=== PATIENT | female | born 1985 | race Two or more races ===

== ENCOUNTER 2016-12-09 22:14 | Emergency (ER) | payer SELFPAY ==
--- NOTE | 2016-12-09 23:18 | EDPHY ---
H & P Stated Complaint: c/o sorethroat x 1 week, pierce x 3 days, n/v/d today Source: Patient Exam Limitations: Language barrier - Medical/Surgical History Hx Asthma: No Hx Chronic Respiratory Disease: No Hx Diabetes: No Hx Cardiac Disease: No Hx Renal Disease: No Hx Cirrhosis: No Hx Alcoholism: No Hx HIV/AIDS: No Hx Splenectomy or Spleen Trauma: No Other PMH: c section x 2 - Social History Smoking Status: Never smoked Time Seen by Provider: 12/09/16 22:38 HPI/ROS: CHIEF COMPLAINT: sore throat, body aches, ear pain HISTORY OF PRESENT ILLNESS: 31-year-old female presents emergency department complaining of sore throat x1 week. She reports body aches, chills, ear pain. She denies cough. Patient reports multiple sick contacts at home with her children. Patient states she took fell some today and right afterwards threw up multiple times and had 4 episodes of diarrhea. Patient denies abdominal pain , she denies blood in her stool or emesis. She denies urinary frequency, urgency or dysuria. Patient took ibuprofen this morning at 6:00 a.m. REVIEW OF SYSTEMS: A comprehensive 10 point review of systems is otherwise negative aside from elements mentioned in the history of present illness. (Aida Eastman) - Physical Exam Exam: General: Alert, nontoxic. ENT: Tympanic membranes clear, external auditory canal, external ear and surrounding soft tissue including over the mastoid unremarkable. Nasopharynx is not injected, there is no rhinorrhea. Oropharynx with erythema. There is no exudate. Bilateral tonsillar hypertrophy. No asymmetry. The uvula is midline. No elevation of tongue. There is no hoarseness. No drooling, patient has good control of their oral secretions. No trismus. No stridor. Cardiac: Tachycardic rate and rhythm. Respiratory: Lungs clear to auscultation bilaterally. Abdomen: Obese, soft, nontender Back: No CVA tenderness Neurological: no meningismus. Skin: No rashes. (Aida Eastman) Constitutional: Initial Vital Signs Temperature (C) 36.8 C 12/09/16 22:22 Heart Rate 118 H 12/09/16 22:22 Respiratory Rate 18 12/09/16 22:22 Blood Pressure 146/105 H 12/09/16 22:22 O2 Sat (%) 95 12/09/16 22:22 O2 Delivery Mode Room Air Allergies/Adverse Reactions: hydrocodone Allergy (Verified 12/09/16 22:29) Home Medications: Medication Instructions Recorded Ondansetron Odt [Zofran Odt] 4 mg PO Q6-8PRN PRN #8 tab 12/10/16 Medical Decision Making ED Course/Re-evaluation: 31-year-old female presents with viral syndrome symptoms. Rapid strep and influenza negative. Pt vomited after she was given Tylenol IV established, patient given 2 L of normal saline and 4 mg of Zofran. She is given 650 mg of Tylenol p.o. Patient is nontoxic appearing she has a benign abdominal exam. She will be discharged home with a prescription for Zofran. I have recommended alternating Tylenol with ibuprofen, rest, hydration. She is to follow up at [facility] tomorrow for symptoms that are not improving and return to the emergency department for worsening symptoms, new symptoms or concerns. (Aida Eastman) Differential Diagnosis: The differential diagnosis for the patient's nausea and vomiting included but was not limited to gastroenteritis, gastritis, appendicitis, and medication side effect. (Aida Eastman) Other Provider: PHYSICIAN DOCUMENTATION: The patient was evaluated and managed by the Physician Diagnostic Assistant. My co- signature indicates that I have reviewed this chart and I agree with the findings and plan of care as documented. I am the secondary supervising physician. (Ivania Roberts) - Data Points Laboratory Results: 12/09/16 12/09/16 12/09/16 Unknown 23:15 22:30 Influenza Typ A,B (DFA) NEGATIVE FOR FLU (NEGATIVE) Group A Strep Screen NEGATIVE (NEGATIVE) Group A Strep DNA Pending Medications Given: Discontinued Medications Acetaminophen (Tylenol) 650 mg PO EDNOW ONE Stop: 12/09/16 23:20 Last Admin: 12/09/16 23:33 Dose: 650 mg Sodium Chloride (Ns) 2,000 mls @ 0 mls/hr IV ONCE ONE PRN Reason: Wide Open Stop: 12/10/16 00:13 Last Admin: 12/10/16 00:37 Dose: 2,000 mls Ondansetron HCl (Zofran) 4 mg IVP EDNOW ONE Stop: 12/10/16 00:13 Last Admin: 12/10/16 00:36 Dose: 4 mg Ondansetron HCl (Zofran Odt 4 Mg Prepack#2) 1 btl ALFREDO CLINE Stop: 12/10/16 00:57 Last Admin: 12/10/16 01:09 Dose: 1 btl Departure - Departure Disposition: Home, Routine, Self-Care Clinical Impression: Viral syndrome Condition: Good Instructions: Ondansetron (By mouth), Acute Nausea and Vomiting (ED), Viral Syndrome (ED) Additional Instructions: Take over the counter Tylenol and ibuprofen as instructed. Rest, drink plenty of fluids. Take 4 mg of Zofran every 8 hours as needed for nausea. Use a saline nasal rinse, humidifier at night, hot steam showers. Return to the ED for difficulty breathing, chest pain, other concerns. [facility] for symptoms that are not improving. Referrals: [facility] [Outside] - As per Instructions Prescriptions: Ondansetron Odt [Zofran Odt] 4 mg PO Q6-8PRN PRN #8 tab PRN Reason: Nausea/Vomiting, Can'T Take Po Print Language: Cambodian
[2016-12-09] MEDS ORDERED: ACETAMINOPHEN 325 MG TAB PO ONE (23:19)
[2016-12-10] MEDS ORDERED: NS 2,000 ML IV ONE (00:12)
[2016-12-10] MEDS ORDERED: ONDANSETRON 4 MG/2 ML VIAL IVP ONE (00:12)
[2016-12-10] MEDS ORDERED: ONDANSETRON 4MG PREPACK#2 BTL TAKEHOME ONE (00:56)
[2016-12-10 01:06] VITALS: RESP 16
[2016-12-10 01:29] VITALS: BP 154/98; PULSE 95; TEMP 98.6; O2SAT 95
== END 2016-12-10 01:31 | disposition home or self-care (01) ==
DX: B34.9 Viral infection, unspecified (principal)
CPT/HCPCS: 96374; J2405

== ENCOUNTER 2017-09-14 14:09 | Emergency (ER) | payer SELFPAY ==
--- NOTE | 2017-09-14 14:58 | EDPHY ---
H & P Stated Complaint: R ear pain Time Seen by Provider: 09/14/17 14:57 - Personal History LMP (Females 10-55): 8-14 Days Ago Current Tetanus/Diphtheria Vaccine: Yes Current Tetanus Diphtheria and Acellular Pertussis (TDAP): Yes - Medical/Surgical History Hx Asthma: No Hx Chronic Respiratory Disease: No Hx Diabetes: No Hx Cardiac Disease: No Hx Renal Disease: No Hx Cirrhosis: No Hx Alcoholism: No Hx HIV/AIDS: No Hx Splenectomy or Spleen Trauma: No Other PMH: c section x 2, atypical cells on uterus - Social History Smoking Status: Never smoked Constitutional: Initial Vital Signs Temperature (C) 36.9 C 09/14/17 14:16 Heart Rate 112 H 09/14/17 14:16 Respiratory Rate 16 09/14/17 14:16 Blood Pressure 160/102 H 09/14/17 14:16 O2 Sat (%) 97 09/14/17 14:16 O2 Delivery Mode Room Air Allergies/Adverse Reactions: hydrocodone Allergy (Verified 09/14/17 14:15) Home Medications: Medication Instructions Recorded Neomy Sulf/Polymyx B Sulf/Hc 4 drops OT TID #1 solution 09/14/17 [Cortisporin Otic (*)] Medical Decision Making ED Course/Re-evaluation: CHIEF COMPLAINT: Right sided otalgia / neck pain HISTORY OF PRESENT ILLNESS: This patient is a Estonian-speaking 32 year old female complaining of right- sided otalgia onset yesterday. She has had two infections in the last six months and has been on two courses of antibiotics. Her symptoms initially resolved following the antibiotics, but return similarly. Her pain is always right-sided. She denies fever or recent cold or cough symptoms. She denies any recent trauma. HPI obtained primarily through sales branch manager at bedside. REVIEW OF SYSTEMS: A 10 point review of systems was performed and is negative with the exception of the elements mentioned in the history of present illness. PHYSICAL EXAM: HR, BP, O2 Sat, RR. Temp noted General Appearance: Alert, well hydrated, appropriate, and non-toxic appearing. Head: Atraumatic without scalp tenderness or obvious injury Eyes: Pupils equal, round, reactive to light and accommodation, EOMI, no trauma , no injection. Ears: Scarred-appearing tympanic membrane on right. Clear on left, no perforation, normal landmarks Nose: Atraumatic, no rhinorrhea, clear. Throat: Mucus membranes moist. Neck: Posterior auricular lymph node swelling on right. Supple, nontender. Respiratory: No retractions, no distress, no wheezes, and no accessory muscle use. Lungs are clear to auscultation bilaterally. Cardiovascular: Regular rate and rhythm. Good capillary refill all extremities. Musculoskeletal: Normal active ROM of all extremities, atraumatic. Neurological: Alert, appropriate, and interactive. Nonfocal neuro exam. Skin: No rashes, good turgor, no nodules on palpation. Past medical history: Atypical uterine cells. Past surgical history: Cesarian section x 2 Family history: Noncontributory Social history: Lives in [place]. Self-employed. Friend at bedside. DIFFERENTIAL DIAGNOSIS: Includes but not limited to otitis externa, otitis media, eustachian tube dysfunction, temporomandibular joint dysfunction. MEDICAL DECISION MAKING: This 32 year old female presents with recurrent right-sided otalgia, most recently beginning yesterday. Exam reveals extensive scarring to the right tympanic membrane. No erythema or discharge. The ear and ear canal are nontender. Plan to discharge home in good condition with prescription for Cortisporin otic drops for symptom relief. She understands it is important to follow up with otolaryngology this week due to the recurrent nature of her symptoms. She will take ibuprofen for pain/inflammation relief. The patient is comfortable with this plan. Departure - Departure Disposition: Home, Routine, Self-Care Clinical Impression: Otalgia of right ear Condition: Good Instructions: Earache (ED) Additional Instructions: 1. Follow up with an Ear, Nose, and Throat specialist this week without fail for further evaluation of your recurrent ear pain and infections. 2. Take Ibuprofen 600mg every 6-8 hours as needed for pain and inflammation relief. 3. Use Cortisporin otic drops as prescribed. As we discussed, this medication is both an antibiotic and a steroid, which will also help relieve inflammation. 4. Return to the emergency department for increased pain, swelling, or redness in your ear or if you experience sudden hearing loss, severe headache, fever, or other worsening of condition. 1- Ori darren lillian de seguimiento con el especialista de Oido, Nariz y Malissata esta semana sin falta para evaluar gibbons condicion actual del oido. 2- [place] Ibuprofen 600 mg cada 6-8 horas a caro lo necesite para dolor e inflamacion. 3. Use las gotas Cortisporin otic recetadas. Olanta lo comentamos rakesh es antibiorico y esteroide, que ayudara con la inflamacion. 4. Regrese a la asia de emergencia si incrementa el dolor, inchazon, o rojizo en gibbons oido o si siente perdida auditiva, dolor ankur de elliot, fiebre, o si empeora. Referrals: [facility] [Other] - As per Instructions Camille Green MD [Medical Doctor] - As per Instructions Prescriptions: Neomy Sulf/Polymyx B Sulf/Hc [Cortisporin Otic (*)] 4 drops OT TID #1 solution Print Language: Estonian Report Scribed for: Hammad Carrington Report Scribed by: Daksha Wyatt Date of Report: 09/14/17 Time of Report: 14:59
[2017-09-14 15:39] VITALS: BP 158/92; PULSE 102; RESP 18; TEMP 98.2; O2SAT 96
== END 2017-09-14 15:56 | disposition home or self-care (01) ==
DX: H92.01 Otalgia, right ear (principal)

== ENCOUNTER 2018-08-10 10:28 | Emergency (ER) | payer SELFPAY ==
--- NOTE | 2018-08-10 11:02 | EDPHY ---
H & P Time Seen by Provider: 08/10/18 10:47 HPI/ROS: Clinical Impression: Strep tonsillitis Assessment/Plan: 33-year-old Peruvian-speaking only female presents to the emergency department with 24 hr of sore throat and dysphagia. Vital signs stable, afebrile, tolerating secretions well, no audible stridor or wheezing. On exam patient has 4+ kissing tonsils, exudates, and a positive strep test. Treatment options discussed. She has elected for IM Bicillin. I also gave Decadron in the ED and a 3 day course of Decadron at home. Encouraged PCP follow-up in 24-48 hours. [id number] medications discussed, hydration emphasized, warning signs to return to ED as outlined and discharge in a person with the use of a etl data architect. Differential Dx: Viral tonsillitis, strep tonsillitis, peritonsillar abscess, retropharyngeal abscess, epiglottitis, uvulitis, dehydration ED Procedures: Positive strep test ED Course: Patient reassessed after positive strep test. etl data architect utilized. Patient elected for IM antibiotics Chief Complaint: Sore throat HPI: This is a 33-year-old otherwise healthy Peruvian-speaking only female presenting to the ER today with 24 hr of sore throat. Patient reports she was ill last week but symptoms completely resolved. Since last night she has had increased pain with swallowing but is able to tolerate secretions, water and over-the- counter medications. No ill contacts at home. She reports subjective fevers. She reports she is coughing up"yellow phlegm". No reported history of asthma or pulmonary disease. She has not seen a primary care provider for this. She reports she is otherwise healthy and does not take regular prescription medications at home. States she is nauseous, no vomiting. etl data architect on used for interpretive services PMH: None Pertinent Past Surgical History: Noncontributory Family History: Noncontributory Social History: Nonsmoker, last menstrual cycle 2 weeks ago ROS: All other systems negative Constitutional: no chills, appetite change. Eyes: No discharge, vision change ENT: no congestion, + ear pain. Cardiovascular: No chest pain, no palpitations. Respiratory: +cough, no shortness of breath. Gastrointestinal: No abdominal pain, no vomiting, positive nausea, diarrhea. Musculoskeletal: No back pain, joint swelling, joint pain, myalgias. Skin: No rashes, color change. Physical Exam: General Appearance: Alert, oriented, appropriate, cooperative, NAD, well hydrated, non-toxic appearing, VSS, no hypoxia. HEENT: TMs are clear bilaterally no perforation or FB, no injection, no evidence of serous or mucopurulent otitis. Symmetric tonsillar hypertrophy with exudates noted. Tonsils 4+ and kissing. No peritonsillar abscess, retropharyngeal abscess or evidence of epiglottitis. Patient tolerating secretions no uvulitis. Dentition without abnormality. Eyes: PERRLA, no acute vision change, nystagmus, swelling, discharge, pain or photosensitivity. Conjunctiva pink, no pallor or injection Neck: Supple, nontender, no lymphadenopathy, no midline pain, FROM, no meningismus. Respiratory: There are no retractions, lungs are clear to auscultation. Cardiac: Regular rate and rhythm, no murmurs or gallops. Gastrointestinal: Abdomen is soft, nontender, bowel sounds normal, no masses/ hernia, no rigidity, guarding or focal peritoneal findings. Skin: Warm, dry, no rashes, no nodules on palpation. MDM: Patient was seen independently by established practice protocols. Secondary supervising physician at time of evaluation was Dr. Velasquez. Diagnosis: Exudate of tonsillitis, strep throat. New, requires workup Summary: 33-year-old Peruvian-speaking only female presents to the emergency department with 24 hr of sore throat and dysphagia. Vital signs stable, afebrile, tolerating secretions well, no audible stridor or wheezing. On exam patient has 4+ kissing tonsils, exudates, and a positive strep test. Treatment options discussed. She has elected for IM Bicillin. I also gave Decadron in the ED and a 3 day course of Decadron at home. Encouraged PCP follow-up in 24- 48 hours. [id number] medications discussed, hydration emphasized, warning signs to return to ED as outlined and discharge in a person with the use of a etl data architect. Clinical lab tests: ordered / reviewed. Independent visualization of images, tracing, or specimens not obtained. Decision to obtain medical records or history from someone other than the patient: No Review / Summarize previous medical records: no Discussed patient with another provider: Dr. Velasquez Risk of comlications, morbidity, mortality Presenting problem low Diagnostic procedures low Management Options low Patient Progress stable. Smoking Status: Never smoked Constitutional: Initial Vital Signs Temperature (C) 37.4 C 08/10/18 10:32 Heart Rate 81 08/10/18 10:32 Respiratory Rate 16 08/10/18 10:32 Blood Pressure 133/84 H 08/10/18 10:32 O2 Sat (%) 93 08/10/18 10:32 O2 Delivery Mode Room Air Allergies/Adverse Reactions: hydrocodone Allergy (Verified 08/10/18 10:32) Home Medications: Medication Instructions Recorded Dexamethasone [Decadron 4 MG (*)] 8 mg PO DAILY #6 tab 08/10/18 Ibuprofen 08/10/18 MDM/Departure - MDM Medications Given: Discontinued Medications Dexamethasone (Decadron) 12 mg PO EDNOW ONE Stop: 08/10/18 11:14 Last Admin: 08/10/18 11:20 Dose: 12 mg Ibuprofen (Motrin) 600 mg PO EDNOW ONE Stop: 08/10/18 11:14 Last Admin: 08/10/18 11:19 Dose: 600 mg - Depart Disposition: Home, Routine, Self-Care Clinical Impression: Exudative tonsillitis Condition: Good Instructions: Tonsillitis (ED) Additional Instructions: Your strep test is positive. You have elected to be treated with a 1 time injection of penicillin. We did prescribe 2 more days of steroids to help with throat swelling. Please make a follow-up appointment with [facility] in 1- 2 days to recheck. Use Tylenol or ibuprofen if needed for pain or fever. Please stay well hydrated, advance her diet as tolerated. Return to the emergency department immediately for increased throat swelling, difficulty swallowing or saliva, neck swelling, fevers greater than 100.4 unresponsive to Tylenol or ibuprofen, tongue swelling, or any other concern. Gibbons prueba de estreptococo es positiva elegido ser tratado con darren inyeccin de penicilina 1 vez. Recetamos 2 morel ms de esteroides para ayudar con la inflamacin de la garganta. Por favor beau darren lillian de seguimiento con [facility] en 1-2 morel para volver a verificar. Use Tylenol o ibuprofeno si es necesario para el dolor o la fiebre. Por favor mantngase ranjeet hidratada, avance gibbons dieta segn lo tolere. Regrese al servicio de urgencias inmediatamente para aumentar la inflamacin de la garganta, dificultad para tragar o saliva, inflamacin del genaro, fiebres mayores de 100.4 que no responden al Tylenol o ibuprofeno, inflamacin de la lengua o cualquier otra Prescriptions: Dexamethasone [Decadron 4 MG (*)] 8 mg PO DAILY #6 tab Referrals: [facility],. [Clinic] - As per Instructions
[2018-08-10] MEDS ORDERED: IBUPROFEN 600 MG TAB PO ONE (11:13)
[2018-08-10] MEDS ORDERED: DEXAMETHASONE 4 MG TAB PO ONE (11:13)
[2018-08-10] MEDS ORDERED: BICILLIN C-R 1200000 UNIT/2 ML SYRINGE IM ONE ×2 (11:18→11:20)
[2018-08-10 12:27] VITALS: BP 129/82
== END 2018-08-10 12:25 | disposition home or self-care (01) ==
DX: J03.90 Acute tonsillitis, unspecified (principal)
CPT/HCPCS: J0558